=== PATIENT | male | born 1960 | race Caucasian/White ===

== ENCOUNTER → 2020-06-20 | Outpatient (CLI) | payer OTHER ==
--- NOTE | 2020-06-20 14:36 | RAD ---
EXAM DESCRIPTION: Thumb,Right CLINICAL HISTORY: 59 years Male, PAIN IN THUMB COMPARISON: None. FINDINGS: Right thumb x-ray shows no fracture. No dislocation. Moderate degenerative changes at the first carpometacarpal joint with milder changes at the first metacarpal phalangeal joint. IMPRESSION: Degenerative changes as described. Negative for fracture or dislocation. Electronically signed by: Goldy Denise MD 06/20/2020 2:34 PM CDT
--- NOTE | 2020-06-20 14:38 | RAD ---
EXAM DESCRIPTION: Hand,Right 3 Views CLINICAL HISTORY: PAIN IN RIGHT HAND COMPARISON: None Available. TECHNIQUE: AP, LATERAL, AND OBLIQUE FINDINGS: Three-view right hand shows no fracture or dislocation. There is no bone lesion. Advanced degenerative arthritic changes at the first carpometacarpal joint with spurring and slight subluxation of the first metacarpal base. Mild degenerative narrowing and spurring of the first metacarpal phalangeal joint. Other bones in the field of view appear intact. There is no radiopaque foreign body. IMPRESSION: Degenerative arthrosis of the first carpometacarpal joint. Electronically signed by: Goldy Denise MD 06/20/2020 2:36 PM CDT
--- NOTE | 2020-06-20 14:40 | RAD ---
EXAM DESCRIPTION: Knee,Right Complete CLINICAL HISTORY: 59 years, Male, PAIN IN UNSP KNEE COMPARISON: None TECHNIQUE: Four x-ray views of the right knee standing FINDINGS: No fracture or dislocation. Bones appear normally mineralized with normal trabecular pattern. Narrowed appearance of medial more than lateral compartments on frontal view. Lateral view shows normal position of the patella. Prominent anterior patellar enthesopathy. Bone island in the distal femur. No suprapatellar knee joint effusion. Normal contour of quadriceps and patellar tendons. No abnormal patellar tilt or subluxation on patellar sunrise view. Degenerative spurring at the medial patellofemoral joint. IMPRESSION: Degenerative changes as described. Electronically signed by: Goldy Denise MD 06/20/2020 2:37 PM CDT
--- NOTE | 2020-06-20 14:42 | RAD ---
EXAM DESCRIPTION: Pelvis CLINICAL HISTORY: 59 years Male, PAIN IN UNSP HIP COMPARISON: None. FINDINGS: X-ray views of the pelvis and AP requires two films cover both hips entirely. Phleboliths in the pelvis. Surgical clips in the penile region. Osseous fragment along the inferior left ischium most consistent with old avulsion injury rather than acute fracture. Degenerative enthesopathy is present. Linear density over the right proximal femoral greater trochanter is seen which may be clothing artifact. Degenerative changes in lower lumbar spine especially lumbosacral junction. Degenerative narrowing of the SI joints. Sacrum appears intact. IMPRESSION: Negative for fracture. Electronically signed by: Goldy Denise MD 06/20/2020 2:40 PM CDT
== END ==
LOC: RAD 09:10
PROVIDERS: ATTEND Orthopaedic Surgery
DX: M17.11 Unilateral primary osteoarthritis, right knee (principal); M18.9 Osteoarthritis of first carpometacarpal joint, unspecified; M25.559 Pain in unspecified hip